=== PATIENT | male | born 1950 | race Caucasian/White ===

== ENCOUNTER 2022-10-25 13:09 | Inpatient (IN) | payer MEDICARE, OTHER ==
[~2022-10-25] VITALS: Wt 116.4 kg
[2022-10-25 14:35] VITALS: BP 203/88
[2022-10-25] MEDS ORDERED: ELIQUIS5 M2 PO (14:49)
[2022-10-25] MEDS ORDERED: LISI5 PO (14:50)
[2022-10-25] MEDS ORDERED: METO25ER PO (14:51)
[2022-10-25] MEDS ORDERED: HYDRA50 PO (14:51)
[2022-10-25] MEDS ORDERED: ATOR40TA PO (14:54)
[2022-10-25] MEDS ORDERED: TRAZ100 PO (14:56)
[2022-10-25] MEDS ORDERED: TORSE20 PO (15:04)
[2022-10-25] MEDS ORDERED: MAGNESIUM OXID500 MG PO (15:05)
[2022-10-25] MEDS ORDERED: ERGO50000 PO (15:24)
[2022-10-25] MEDS ORDERED: METF500 PO (15:26)
[2022-10-25] MEDS ORDERED: KETO15TC TOP (15:27)
[2022-10-25] MEDS ORDERED: Norco 5-325 Ta1 EACH PO ×2 (15:27→15:31)
[2022-10-25] MEDS ORDERED: TRULICITY0.75 MG/01 SC (15:28)
[2022-10-25] MEDS ORDERED: MUPIROCIN1 G1 TOP (15:30)
[2022-10-25] MEDS ORDERED: INCRUSE ELLIPTA INH (15:35)
[2022-10-25 15:58] LABS: Hematocrit 28.8 % (37.0-53.0); Hemoglobin 9.7 g/dL (13.5-17.5); Mean Corpuscular HGB Conc 33.7 g/dL (31.5-36.5); Mean Corpuscular Volume 89 fL (80-100); Mean Platelet Volume 11.1 fL (9.1-12.4); Platelet Count 230 K/mm3 (150-400); RDW Coefficient Variation 14.1 % (11.7-14.2); RDW Standard Deviation 45.5 fL (35.1-46.3); Red Blood Cell Count 3.23 M/mm3 (4.30-5.90); White Blood Cell Count 9.48 K/mm3 (4.00-11.30)
[2022-10-25 16:04] LABS: Source, Urine Clean Catch
[2022-10-25 16:24] LABS: Magnesium, Blood 1.6 mg/dL (1.6-2.4)
[2022-10-25 16:28] LABS: Albumin, Blood 2.8 g/dL (3.4-5.0); Anion Gap 8 mmol/L (6-16); Blood Urea Nitrogen 65 mg/dL (8-24); Bun/Creatinine Ratio 18.5 (12.0-20.0); CO2, Blood 20 mmol/L (21-32); Calcium, Blood 8.5 mg/dL (8.5-10.1); Chloride, Blood 103 mmol/L (98-108); Creatinine, Blood 3.51 mg/dL (0.60-1.20); Glomerular Filtration Rate 18 (60-); Glucose, Blood 292 mg/dL (70-99); Phosphorus, Blood 5.5 mg/dL (2.5-4.9); Potassium, Blood 5.8 mmol/L (3.5-5.5); Sodium, Blood 131 mmol/L (136-145)
[2022-10-25 16:31] LABS: Appearance, Urine Clear (Clear); Bilirubin, Urine Neg (Neg); Blood, Urine 1+ (Neg); Color, Urine Yellow (P-Yellow); Glucose Qualitative, Urine 4+ (Neg); Ketones, Urine Neg (Neg); Leukocyte Esterase, Urine Neg (Neg); Nitrite, Urine Neg (Neg); Protein, Urine 4+ (Neg); Specific Gravity, Urine 1.015 (1.003-1.022); Urobilinogen, Urine NORM (Normal)
[2022-10-25 16:42] LABS: Bacteria Few /hpf; Squamous Epithelial Cells Rare /hpf (Few); White Blood Cells, Urine 0-2 /hpf (0-5)
[2022-10-25 17:40] VITALS: BP 130/106
--- NOTE | 2022-10-25 18:44 | NUR ---
ADMIT NOTE PATIENT NEW ADMIT TO UNIT FROM [facility] FOR CHF EXACERBATION AND RENAL FAILURE. ARRIVED TO UNIT ON GURNEY, ALERT AND ORIENTED. SLIDE TRANSFERRED TO BED. 4L O2 VIA NC. HYPERTENSIVE. OTHER VSS. AFLUTTER ON TELE. ECHO AND RENAL US DONE. NEPHROLOGY CONSULTED. TOLERATING ADA DIET AND LIQUIDS. CONDOM CATH IN PLACE. EDEMA TO BLE. CPAP SET UP BY RT.
[2022-10-25 19:59] VITALS: BP 179/86
[2022-10-25 21:03] LABS: Percent Saturation 10.3 % (20.0-50.0); Phosphorus, Blood 5.3 mg/dL (2.5-4.9); Uric Acid, Blood 7.8 mg/dL (3.5-7.2)
[2022-10-26 00:44] VITALS: BP 129/58
[2022-10-26 03:52] LABS: Albumin, Blood 2.5 g/dL (3.4-5.0); Anion Gap 4 mmol/L (6-16); Blood Urea Nitrogen 69 mg/dL (8-24); Bun/Creatinine Ratio 20.2 (12.0-20.0); CO2, Blood 21 mmol/L (21-32); Calcium, Blood 8.2 mg/dL (8.5-10.1); Chloride, Blood 103 mmol/L (98-108); Creatinine, Blood 3.41 mg/dL (0.60-1.20); Glomerular Filtration Rate 18 (60-); Glucose, Blood 216 mg/dL (70-99); Phosphorus, Blood 5.6 mg/dL (2.5-4.9); Potassium, Blood 5.2 mmol/L (3.5-5.5); Sodium, Blood 128 mmol/L (136-145)
[2022-10-26 05:12] VITALS: BP 155/80
--- NOTE | 2022-10-26 05:48 | NUR ---
Assumed care of patient at 1900. A/Ox4, independent in room. Reports chronic leg pain 12/29, medicated per emar with good relief. Weakness noted t/o. Maintains over 92% on 3-4L NC or CPAP with 3-4L bleed. LS coarse t/o with productive cough, although unable to expectorate secretions. Aflutter on tele 80's. Denies CP/pressure, VSS. SBP elevated at beginning of shift, but came down with HS dosing of BP meds. BLE 3+ pitting edema. Nonpitting edema noted in L hand. Moderate abdominal distention, firm to palpation. Condom cath draining good amounts of clear/yellow urine (see I&O). R 4th toe with redness and swelling. Scabs on BLE noted. Dr. Blackmon in to see patient this shift and review plan of care. Will report to sabra MONAE.
[2022-10-26 07:15] VITALS: BP 190/82
--- NOTE | 2022-10-26 09:01 | NUR ---
Spiritual care visit conducted. Patient is sitting up in bed and alert. Patient talks about his medical history and the events that led to his hospitalization. He shares about his housing insecurity, his personal struggles and his deep wrestlings about spiritual matters. We explore his baptist beliefs and how they might positively impact this season of life and his ability to cope with his medical conditions. As he speaks about his fears and is vulnerable about his past failures, I normalize his experience, listen empathically and provide theological insights and prayer. These interventions have great result and promote a catharsis and increased peace that is easily discernible. I will continue to remain available to patient and family.
[2022-10-26 12:17] VITALS: BP 174/76
[2022-10-26 15:45] VITALS: BP 151/72
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
--- NOTE | 2022-10-26 18:31 | NUR ---
SHIFT SUMMARY/TRANSFER NOTE: PT A PCU19 TRANSFER, REPORT RECEVIED BY SARABJIT MONAE. PT ARRIVED VIA WC, TRANSFER FROM WC TO BED WITH 1 PERSON ASSIST WITH FWW. PT ON 2L NC CONTIUNOUS (BASLINE), CPAP AT NIGHT WITH 2L OXYGEN. PT A&O X4, PLEASANT, COOPERATIVE AND ABLE TO VOICE NEEDS. PT ORIENTATED TO ROOM, CALL LIGHT AND COMMUNICATION BROAD. PT HAD CONDOM CATHETER IN PLACE R/T IV LASIX FOR EDEMA. PT HAD MODERATE EDEMA BLE. PT HAS A DRY SCAB TO THE RIGHT 4TH TOE. PT HAD NO COMPLAINTS OF PAIN OR DISCOMFORT DURING THE SHIFT. PT ABLE TO SET UP IN CHAIR FOR MOST MEALS. PT IN BED WITH CALL LIGHT WITHIN REACH.
[2022-10-26 20:15] VITALS: BP 123/97
--- NOTE | 2022-10-27 02:53 | NUR ---
SHIFT SUMMARY NOC PT A/O X 4. PLEASANT AND COOPERATIVE WITH CARE. PT VERY TALKATIVE. PT IS DIURESING AND HAS PUT OUT 2.5L OF URINE SO FAR DURING SHIFT. PT ON TELE RUNNING A-FLUTTER HR 71 BPM. PT ON O2 2L/NC WITH CONTINUOUS BIOX MAINTAINING SPO2 > 92%. PT BLE EDEMATOUS 3+. PT IS CURRENTLY RESTING WITH CPAP WITH O2 2L BLEED IN, WITH BED IN LOWEST POSITION, AND CALL LIGHT WITHIN REACH.
[2022-10-27 04:28] VITALS: BP 185/94
[2022-10-27 05:04] LABS: Albumin, Blood 2.6 g/dL (3.4-5.0); Anion Gap 7 mmol/L (6-16); Blood Urea Nitrogen 70 mg/dL (8-24); Bun/Creatinine Ratio 20.4 (12.0-20.0); CO2, Blood 22 mmol/L (21-32); Calcium, Blood 8.3 mg/dL (8.5-10.1); Chloride, Blood 97 mmol/L (98-108); Creatinine, Blood 3.43 mg/dL (0.60-1.20); Glomerular Filtration Rate 18 (60-); Glucose, Blood 207 mg/dL (70-99); Phosphorus, Blood 5.5 mg/dL (2.5-4.9); Potassium, Blood 4.6 mmol/L (3.5-5.5); Sodium, Blood 126 mmol/L (136-145)
[2022-10-27 05:49] VITALS: BP 143/76
[2022-10-27 07:42] VITALS: BP 149/72
[2022-10-27 15:45] VITALS: BP 135/62
--- NOTE | 2022-10-27 19:11 | NUR ---
SHIFT SUMMARY NO NOTED CHANGES THIS SHIFT. TELEMETRY SHOWS A-FIB HR 39; A-FLUTTER HR 59. 2L O2, CPAP WITH 4L. PTN REQUESTS CPAP DURING DAY WHEN RESTING ALSO. EDEMA TO BLE, DIURESING. CONTINUE TO MONITOR.
[2022-10-27 19:16] VITALS: BP 137/40
[2022-10-27 20:24] VITALS: BP 171/74
[2022-10-28 02:56] VITALS: BP 162/92
[2022-10-28 05:26] LABS: Hematocrit 28.4 % (37.0-53.0); Hemoglobin 9.7 g/dL (13.5-17.5); Mean Corpuscular HGB 30.2 pg (26.0-34.0); Mean Corpuscular HGB Conc 34.2 g/dL (31.5-36.5); Mean Corpuscular Volume 89 fL (80-100); Mean Platelet Volume 11.4 fL (9.1-12.4); Platelet Count 243 K/mm3 (150-400); RDW Coefficient Variation 13.7 % (11.7-14.2); RDW Standard Deviation 44.8 fL (35.1-46.3); Red Blood Cell Count 3.21 M/mm3 (4.30-5.90); White Blood Cell Count 8.74 K/mm3 (4.00-11.30)
[2022-10-28 05:58] LABS: Albumin, Blood 2.6 g/dL (3.4-5.0); Anion Gap 7 mmol/L (6-16); Blood Urea Nitrogen 76 mg/dL (8-24); Bun/Creatinine Ratio 21.1 (12.0-20.0); CO2, Blood 24 mmol/L (21-32); Calcium, Blood 8.3 mg/dL (8.5-10.1); Chloride, Blood 97 mmol/L (98-108); Glomerular Filtration Rate 17 (60-); Glucose, Blood 236 mg/dL (70-99); Potassium, Blood 4.6 mmol/L (3.5-5.5); Sodium, Blood 128 mmol/L (136-145)
--- NOTE | 2022-10-28 06:42 | NUR ---
SHIFT SUMMARY PT SITTING UP IN BED DURING BEDSIDE REPORT- PT DENIES PAIN, PT ATE SNACK WITH HS MEDS- IV INFUSED WITHOUT PROBLEMS, PT DENIES PAIN, PT WEARING CPAP WITH SCIENTIFIC PROGRAMMER ANALYST IN PLACE,TELE IN PLACE, PT WEARING CONDOM CATH= DRAINING CLEAR YELLOW URINE, PT SLEPT T/O NIGHT, BED LOW POSITION, CALL LIGHT WITHIN REACH
[2022-10-28 07:16] VITALS: BP 183/86
[2022-10-28 12:07] LABS: HBSAG SCREEN Negative (Negative); HCV ANTIBODY Non Reactive (Non Reactive); HEP B SURFACE AB Non Reactive (.)
[2022-10-28 13:50] VITALS: BP 132/68
[2022-10-28 15:28] VITALS: BP 167/73
--- NOTE | 2022-10-28 17:45 | NUR ---
SHIFT SUMMARY- NO ACUTE EVENTS THIS SHIFT. PT AAOX4. CALM AND COOPERATIVE. PT TRANSFERRED TO [facility] X1 THIS SHIFT. X1 PERSON ASSIST. PT WORKED W/PT IN BED ONLY DUE TO PT'S REQUEST. PAIN WELL CONTROLLED WITH PAIN MEDS.
[2022-10-28 19:56] VITALS: BP 168/75
[2022-10-29 04:07] VITALS: BP 157/79
[2022-10-29 06:07] LABS: Bun/Creatinine Ratio 21.9 (12.0-20.0); Calcium, Blood 8.5 mg/dL (8.5-10.1); Creatinine, Blood 3.66 mg/dL (0.60-1.20); Potassium, Blood 4.3 mmol/L (3.5-5.5)
--- NOTE | 2022-10-29 06:07 | NUR ---
SHIFT SUMMARY BEDSIDE REPORT DONE- PT REPORTED FEELING ITCHY AND FEELS LIKE HE IS GETTING BUG BITES- ENCOURAGED PT TO HAVE A BED BATH TO SEE IF IT DECREASES ITCHING- BED BATH DONE- PT REPORTED ITCHING REDUCED- CONDOM CATH IN PLACE- CLEAR YELLOW URINE DRAINING- LEFT LEG CATH SECURE APPLIED TOO TIGHT- INCREASED EDEMA IN LEFT LEG= EDEMA REDUCED AFTER REMOVAL OF STRAP AND ELEVATION- BED LOW POSITION, CALL LIGHT IN REACH
[2022-10-29 07:23] VITALS: BP 178/84
[2022-10-29 14:15] VITALS: BP 176/95
--- NOTE | 2022-10-29 17:32 | NUR ---
SUMMARY- PT A/OX4, USES CALL LIGHT. TOLERATING FOOD AND FLUIDS. UP WITH PHYSICAL THERAPY AMB APPROX 5 FEET WITH WALKER. MOSTLY BEDBOUND, ADJUSTS SELF IN BED. CONDOM CATH FOR VOID. DIURESING PT, WITH GOOD URINE OUTPUT. LE EDEMA LESSENING. WILL REPORT TO JOSE RN.
[2022-10-29 19:40] VITALS: BP 206/85
[2022-10-29 19:49] VITALS: BP 190/90
[2022-10-29 22:11] VITALS: BP 174/74
--- NOTE | 2022-10-29 22:24 | NUR ---
BP AFTER SHIFT CHANGE ELEVATED. GAVE SCHEDULED ORAL HYDRALAZINE. RECHECKED BP AFTER A WHILE AND IT WAS 174/74, MORE IN LINE WITH WHAT IT HAS BEEN OVER COURSE OF DAY PER CHART. PT ASYMPTOMATIC. DISCUSSION WITH JOVON GLASS RN. WILL RECHECK BP AT 0000 AND CALL HOSPITALIST IF IT IS AGAIN ELEVATED.
[2022-10-30 03:18] VITALS: BP 172/72
--- NOTE | 2022-10-30 04:01 | NUR ---
SHIFT MOSTLY UNREMARKABLE. 2100 MEDICATIONS ADMINISTERED WITHOUT DIFFICULTY. NO REPORTED PAIN. CPAP HAS BEEN ON THROUGHOUT NIGHT ALTHOUGH HE FREQUENTLY REMOVES TO DRINK AND REQUIRES ASSISTANCE TO PUT IT BACK ON. CONDOM CATHETER IN PLACE AND DRAINING WELL, PT DENIED ANY ASSOCIATED PAIN/DISCOMFORT. CALLS APPROPRIATELY, AOX4. BED LOCKED IN LOWEST POSITION. CALL LIGHT LEFT WITHIN REACH.
[2022-10-30 04:15] VITALS: BP 128/62
[2022-10-30 06:18] LABS: Albumin, Blood 2.6 g/dL (3.4-5.0); Anion Gap 11 mmol/L (6-16); Blood Urea Nitrogen 82 mg/dL (8-24); CO2, Blood 20 mmol/L (21-32); Calcium, Blood 8.2 mg/dL (8.5-10.1); Chloride, Blood 97 mmol/L (98-108); Creatinine, Blood 3.72 mg/dL (0.60-1.20); Glomerular Filtration Rate 17 (60-); Glucose, Blood 207 mg/dL (70-99); Phosphorus, Blood 6.9 mg/dL (2.5-4.9); Potassium, Blood 4.2 mmol/L (3.5-5.5); Sodium, Blood 128 mmol/L (136-145)
[2022-10-30 07:57] VITALS: BP 154/82
[2022-10-30 12:12] LABS: M-SPIKE, % Not Observed % (Not Observed); PROTEIN,TOTAL,URINE 212.2 mg/dL (Not Estab.)
[2022-10-30 15:12] LABS: A/G RATIO 1.1 (0.7-1.7); ALBUMIN 2.9 g/dL (2.9-4.4); ALPHA-1-GLOBULIN 0.2 g/dL (0.0-0.4); ALPHA-2-GLOBULIN 0.8 g/dL (0.4-1.0); BETA GLOBULIN 0.9 g/dL (0.7-1.3); GAMMA GLOBULIN 0.8 g/dL (0.4-1.8); GLOBULIN, TOTAL 2.7 g/dL (2.2-3.9); M-SPIKE Not Observed g/dL (Not Observed); PROTEIN, TOTAL, SERUM 5.6 g/dL (6.0-8.5)
[2022-10-30 15:39] VITALS: BP 144/55
--- NOTE | 2022-10-30 16:25 | NUR ---
Spritualc are csre visit conducted. Patient is sitting on a chair and alert. Patient tells me what care management is working on for him in terms of best d/c plans. He is tearful as he reflects on his thoughts of lack of value and troubles with finding meaning and purpose in life. We talk at length about these topics and explore sources of worth and meaning. We discuss his emily, his qualities and forgiveness (for himself and others). I provide therapeutic listening, gentle chief counsel, anxiety containment and prayer. PAtient responded well and showed signs of greter peace. I will continue to remain available to patient and family.
--- NOTE | 2022-10-30 18:09 | NUR ---
SHIFT SUMMARY- NO ACUTE EVENTS THIS SHIFT. AAOX4. CALM AND COOPERATIVE. X1 TO BSC. WORKED W/RESTORATIVE PT MINIMALLY THIS SHIFT.
[2022-10-30 20:10] VITALS: BP 146/68
--- NOTE | 2022-10-31 04:07 | NUR ---
SHIFT UNREMARKABLE. APPLIED NEW CONDOM CATHETER EARLY IN SHIFT AFTER PREVIOUS ONE FELL OFF. PT HAS CONTINUED TO DENY ANYTHING OUTSIDE OF MINOR PAIN, REFUSES PAIN MEDICATION. AOX4. CALLS APPROPRIATELY. DOES NOT SLEEP MORE THAN SPORADICALLY. CPAP ON THROUGH NIGHT, SATTING >90%. TELE ON THROUGH NIGHT. PT HAS REMAINED IN CHAIR THROUGH MOST OF SHIFT. CHAIR WHEELS LOCKED. CALL LIGHT LEFT WITHIN REACH.
[2022-10-31 04:20] VITALS: BP 174/96
[2022-10-31 08:06] VITALS: BP 156/80
[2022-10-31 10:12] LABS: Albumin, Blood 2.6 g/dL (3.4-5.0); Anion Gap 4 mmol/L (6-16); Blood Urea Nitrogen 89 mg/dL (8-24); Bun/Creatinine Ratio 23.1 (12.0-20.0); CO2, Blood 29 mmol/L (21-32); Calcium, Blood 8.4 mg/dL (8.5-10.1); Chloride, Blood 94 mmol/L (98-108); Creatinine, Blood 3.85 mg/dL (0.60-1.20); Glomerular Filtration Rate 16 (60-); Glucose, Blood 232 mg/dL (70-99); Phosphorus, Blood 7.2 mg/dL (2.5-4.9); Potassium, Blood 4.3 mmol/L (3.5-5.5); Sodium, Blood 127 mmol/L (136-145)
[2022-10-31 14:55] VITALS: BP 169/65
[2022-10-31 16:57] VITALS: BP 174/72
--- NOTE | 2022-10-31 18:48 | NUR ---
SHIFT SUMMARY PT IN RECLINER CHAIR THROUGH THE DAY. [employer] WORKED WITH PT THIS A.M AND PROVIDED EXCERCISES FOR HIM TO DO WHILE SITTING IN CHAIR. STATES HE IS MUCH WEAKER THAN HE NORMALLY IS. ENCOUARAGE PT TO TAKE ADVANTAGE OF [employer] WORKING WITH HIM AND WALK WHILE THEY ARE THERE. NO SOB NOTED TODAY.
[2022-10-31 20:20] VITALS: BP 150/72
[2022-11-01 04:47] VITALS: BP 161/72
--- NOTE | 2022-11-01 05:17 | NUR ---
QUICKBOOKS BOOKKEEPER SUMMARY BP ELEVATED BUT EQUIVALENT TO PREVIOUS BP'S, OTHERWISE VSS. CBG 244 AT HS, INSULIN GIVEN ORDERED. MED TELE - A FLUTTER IN THE 60'S. O2 AT 2L/NC WITH CPAP AT NIGHT. SPENT MOST OF SHIFT IN RECLINER CHAIR HE FELT MORE COMFORTABLE IN IT. CONDOM CATH IN USE. VOIDING QS. HAS BEEN RSTING QUIETLY AT INTERVALS AND WATCHING TV IN BETWEEN SLEEP TIMES. CALL LIGHT IN REACH. NO NOTED S/S ACUTE DISTRESS. WILL CONTINUE TO MONITOR
[2022-11-01 07:53] VITALS: BP 188/91
[2022-11-01 09:45] LABS: Bun/Creatinine Ratio 25.1 (12.0-20.0); Calcium, Blood 8.5 mg/dL (8.5-10.1); Creatinine, Blood 3.7 mg/dL (0.60-1.20); Potassium, Blood 4.3 mmol/L (3.5-5.5)
[2022-11-01 14:54] VITALS: BP 111/91
[2022-11-01 16:15] VITALS: BP 152/80
--- NOTE | 2022-11-01 18:33 | NUR ---
SHIFT SUMMARY PT SITTING IN RECLINER THIS AFTERNOON. REPORTED PAIN TO LE'S PRIOR TO SUPPER AND PAIN MED GIVEN WITH EFFECT. PLANS FOR PT TO DISCHARGE HOME TOMORROW. CONTINUES WITH EDEMA TO BLE'S. REPORTED HE THINKS HE HAD A BM 2 DAYS AGO NOT WHAT HAS BEEN DOCUMENTED AND DOESN'T FEEL TOO CONCERNED ABOUT CONSTIPATION YET.
[2022-11-01 20:22] VITALS: BP 155/80
[2022-11-02 04:10] VITALS: BP 139/81
--- NOTE | 2022-11-02 04:54 | NUR ---
SHIFT SOUTH, PT RESTING IN RECLINER. PT CALLED FOR PAIN MEDS. PTSTATED THAHIS FEET WERE VERY PAINFULL AND PT REQUESTING SOME PAIN MEDS. AT THIS TIME PT APPEARS TO BE COMFORTABLE. CALL LIGHT IN REACH.
[2022-11-02 06:25] LABS: Bun/Creatinine Ratio 25.6 (12.0-20.0); Calcium, Blood 8.5 mg/dL (8.5-10.1); Creatinine, Blood 4.1 mg/dL (0.60-1.20); Potassium, Blood 4.4 mmol/L (3.5-5.5)
[2022-11-02 08:22] VITALS: BP 128/48
[2022-11-02] MEDS ORDERED: TRAZ50 PO (15:04)
[2022-11-02] MEDS ORDERED: INSULIN GL100 UNIT/4 SC (15:07)
[2022-11-02] MEDS ORDERED: MIRALAX17 GM PO (15:11)
[2022-11-02] MEDS ORDERED: INSULIN LI100 UNIT/6 SC (15:11)
[2022-11-02] MEDS ORDERED: SPIRIVA RESPIMAT4 G3 INH (15:14)
[2022-11-02] MEDS ORDERED: ERGO50000 PO (15:15)
--- NOTE | 2022-11-02 16:27 | NUR ---
DC HOME/LATE ENTRY 1600: WRITTEN & VERBAL DC INSTRUCTIONS GIVEN TO PT WITH GOOD UNDERSTANDING VERBALIZED. LONG ACTING & SHORT ACTING INSULIN INJECTION TEACHING DONE. MEDIUM SCALE CORRECTION SCALE PROVIDED & EXPLAINED TO PT. NEW SCRIPTS FAXED TO [facility] PER PT REQUEST. ALL PERSONAL BELONGINGS BAGGED UP FOR PT. VALUABLES IN HOSPITAL SAFE BROUGHT UP BY SECURITY. PT SIGNED FOR AND VERIFIED CONTENTS. PIV DC'D WITH CATH TIP INTACT, NO REDNESS OR SWELLING NOTED. TELE DC'D. TUNNEL INSPECTOR NOTIFIED. MEDICAL W/C TRANSPORT HERE FOR TRANSPORTATION HOME TO [place]. [facility] DELIVERED PORTABLE O2 TANK FOR TRANSPORT HOME. PT OUT TO TRANSPORT WITH ALL PERSONAL BELONGINGS.
== END 2022-11-02 16:21 | disposition home health service (06) | DRG 682 ==
LOC: PCU 13:09 → MEDS 14:25 → PCU 14:25 → MEDS 10-26 12:59
PROVIDERS: Internal Medicine; Internal Medicine Nephrology; ADMIT Internal Medicine
PROC: 5A09357 Assistance with Respiratory Ventilation, Less than 24 Consecutive Hours, Continuous Positive Airway Pressure (ICD-10-PCS; principal; 2022-10-25)
DX: N17.9 Acute kidney failure, unspecified (principal); I50.43 Acute on chronic combined systolic (congestive) and diastolic (congestive) heart failure; I13.0 Hypertensive heart and chronic kidney disease with heart failure and stage 1 through stage 4 chronic kidney disease, or unspecified chronic kidney disease; E87.1 Hypo-osmolality and hyponatremia; J96.11 Chronic respiratory failure with hypoxia; I48.92 Unspecified atrial flutter; Z68.1 Body mass index [BMI] 19.9 or less, adult; N25.81 Secondary hyperparathyroidism of renal origin; N18.30 Chronic kidney disease, stage 3 unspecified; E11.22 Type 2 diabetes mellitus with diabetic chronic kidney disease; I48.91 Unspecified atrial fibrillation; E11.40 Type 2 diabetes mellitus with diabetic neuropathy, unspecified; J44.9 Chronic obstructive pulmonary disease, unspecified; E55.9 Vitamin D deficiency, unspecified; I35.0 Nonrheumatic aortic (valve) stenosis; G47.33 Obstructive sleep apnea (adult) (pediatric); Z96.612 Presence of left artificial shoulder joint; E66.9 Obesity, unspecified; D50.9 Iron deficiency anemia, unspecified; E87.5 Hyperkalemia; Z79.51 Long term (current) use of inhaled steroids; Z79.4 Long term (current) use of insulin; Z99.3 Dependence on wheelchair; Z99.81 Dependence on supplemental oxygen; Z85.828 Personal history of other malignant neoplasm of skin; Z87.891 Personal history of nicotine dependence; Z79.01 Long term (current) use of anticoagulants; Z79.899 Other long term (current) drug therapy; Z79.84 Long term (current) use of oral hypoglycemic drugs
CPT/HCPCS: 36415; 76770; 80048; 80069; 81001; 82306; 82550; 82570; 82728; 82947; 83036; 83516; 83540; 83550; 83615; 83735; 83970; 84100; 84156; 84165; 84166; 84484; 84550; 85027; 86803; 87340; 93306; 94640; 94660; 94664; 94762; 97110; 97110-CQ; 97116; 97162; 97530; A9270; J1815; J1940; J2916; J7050